=== PATIENT | female | born 1995 ===

== ENCOUNTER 2022-03-05 21:22 | Emergency (ER) | payer MEDICAID | END 2022-03-05 23:00 | disposition left against medical advice (07) | LOC: ED 21:22 | DX: R05.9 Cough, unspecified (principal); R11.10 Vomiting, unspecified; Z53.21 Procedure and treatment not carried out due to patient leaving prior to being seen by health care provider ==

== ENCOUNTER 2022-06-01 09:37 | Emergency (ER) | payer MEDICAID ==
[2022-06-01 09:48] VITALS: BP 110/76
[2022-06-01 10:38] LABS: Basophils % (Auto) 0.6 % (0.0-1.8); Eosinophils % (Auto) 1.2 % (0.0-4.3); Hematocrit 36.8 % (30.3-42.9); Hemoglobin 12.1 gm/dl (10.1-14.3); Lymphocytes # (Auto) 1.2 K/mm3 (1.2-5.4); Lymphocytes % (Auto) 39.8 % (13.4-35.0); Mean Corpuscular HGB Conc 33 % (30-34); Mean Corpuscular Volume 85 fl (79-97); Monocytes # (Auto) 0.2 K/mm3 (0.0-0.8); Monocytes % (Auto) 7.3 % (0.0-7.3); Platelet Count 263 K/mm3 (140-440); Red Blood Count 4.36 M/mm3 (3.65-5.03)
[2022-06-01 10:54] LABS: BUN/Creatinine Ratio 11; Blood Urea Nitrogen 10 mg/dL (7-17); Calcium 9.2 mg/dL (8.4-10.2); Hemolysis Index 1
[2022-06-01 15:00] LABS: Mucus,Urine 3+ /HPF
[2022-06-01 15:24] LABS: Color,Urine Straw (Yellow)
--- NOTE | 2022-06-01 16:07 | Emergency Department Report ---
ED Abdominal Pain HPI - General Chief Complaint: Abdominal Pain Stated Complaint: STOMACH PAIN Time Seen by Provider: 06/01/22 14:31 Source: patient Mode of arrival: Ambulatory Limitations: No Limitations - History of Present Illness Initial Comments: 27-year-old black female with no past medical history presents to the emergency department for evaluation of 1 week history of abdominal pain. She states that pain is intermittent and associated with some diarrhea, dysuria, and vaginal discharge. She denies nausea, vomiting, and fever. She states that pain at its worst is 8 out of 10. She states that she has not taken any medications for her symptoms. MD Complaint: abdominal pain -: Gradual, week(s) (1) Location: diffuse Radiation: none Migration to: no migration Severity scale (0 -10): 8 Quality: aching Consistency: intermittent Associated Symptoms: diarrhea, dysuria. denies: nausea, vomiting, fever, chills, hematemesis, hematochezia, melena, hematuria, anorexia, syncope - Related Data Allergies Allergy/AdvReac Type Severity Reaction Status Date / Time No Known Allergies Allergy Verified 06/01/22 09:49 ED Review of Systems ROS: Stated complaint: STOMACH PAIN Other details as noted in HPI Comment: All other systems reviewed and negative Constitutional: denies: chills, fever Respiratory: denies: shortness of breath Cardiovascular: denies: chest pain, palpitations Gastrointestinal: abdominal pain, diarrhea. denies: nausea, vomiting, hematemesis, melena, hematochezia Genitourinary: dysuria, discharge. denies: urgency, frequency, hematuria Musculoskeletal: denies: back pain Skin: denies: rash, lesions Neurological: denies: headache, weakness ED Physical Exam - General Limitations: No Limitations General appearance: alert, in no apparent distress - Head Head exam: Present: atraumatic, normocephalic - Eye Eye exam: Present: normal appearance. Absent: scleral icterus, conjunctival injection, periorbital swelling, periorbital tenderness - ENT ENT exam: Present: normal exam - Neck Neck exam: Present: normal inspection, full ROM. Absent: tenderness, lymphadenopathy - Respiratory Respiratory exam: Present: normal lung sounds bilaterally. Absent: respiratory distress, wheezes, rales, rhonchi, stridor, chest wall tenderness - Cardiovascular Cardiovascular Exam: Present: regular rate, normal heart sounds - GI/Abdominal GI/Abdominal exam: Present: soft, normal bowel sounds. Absent: distended, tenderness, guarding, rebound, rigid - External exam: Absent: erythema, swelling, lesions Speculum exam: Absent: erythema, vaginal discharge, cervical discharge, vaginal bleeding, foreign body Bi-manual exam: Absent: cervical motion tendernes, adnexal tenderness, uterine tenderness - Extremities Exam Extremities exam: Present: normal inspection, full ROM, normal capillary refill. Absent: tenderness, pedal edema, joint swelling, calf tenderness - Back Exam Back exam: Present: normal inspection. Absent: CVA tenderness (R), CVA tenderness (L), vertebral tenderness - Neurological Exam Neurological exam: Present: alert, oriented X3, CN II-XII intact, normal gait - Psychiatric Psychiatric exam: Present: normal affect, normal mood - Skin Skin exam: Present: warm, dry, intact, normal color ED Course Vital Signs 06/01/22 09:47 Temperature 98.2 F Pulse Rate 68 Respiratory 18 Rate Blood Pressure 110/76 [Left] O2 Sat by Pulse 100 Oximetry ED Medical Decision Making - Lab Data Result diagrams: 06/01/22 10:14 06/01/22 10:14 - Medical Decision Making 27-year-old black female with no past medical history presents to the emergency department for evaluation of 1 week history of abdominal pain. She states that pain is intermittent and associated with some diarrhea, dysuria, and vaginal discharge. She denies nausea, vomiting, and fever. She states that pain at its worst is 8 out of 10. She states that she has not taken any medications for her symptoms. Physical exam unremarkable. Work-up unremarkable. Patient advised to follow-up with her primary care provider, gastroenterology, or [facility] for further evaluation and management. She is advised to return to the emergency department as needed. She verbalizes understanding of and agreement with plan of care. Critical care attestation.: If time is entered above; I have spent that time in minutes in the direct care of this critically ill patient, excluding procedure time. ED Disposition Clinical Impression: Abdominal pain Qualifiers: Abdominal location: epigastric Qualified Code(s): R10.13 - Epigastric pain Disposition: HOME / SELF CARE / HOMELESS Is pt being admited?: No Does the pt Need Aspirin: No Condition: Stable Instructions: Abdominal Pain, Adult, [id number], Abdominal Pain (ED) Additional Instructions: Follow-up with your primary care provider or [facility] for further evaluation and management. Turn to the emergency department as needed. Referrals: BOYD FUNES MD [Staff Physician] - 3-5 Days Forms: Work/School Release Form(ED) Time of Disposition: 16:08
== END 2022-06-01 17:21 | disposition home or self-care (01) ==
LOC: ED 09:37
DX: R10.9 Unspecified abdominal pain (principal); R19.7 Diarrhea, unspecified; R30.0 Dysuria
CPT/HCPCS: 36415; 80048; 81001; 83690; 85025; 87210; 99283; 99284